=== PATIENT | male | born 1980 | race Native Hawaiian/Other Pacific Islander ===

== ENCOUNTER 2018-07-25 23:42 | Emergency (ER) | payer OTHER, MEDICAID ==
[~2018-07-25] VITALS: Ht 167.6 cm; Wt 80.7 kg
[~2018-07-25 23:42] MED LIST: BACTRIM DS TAB1 EACH PO; NOHOMEMEDICATIONS; NORCO 5-325 TA1 EACH PO
[2018-07-26 00:37] LABS: ABSOLUTE EOSINOPHILS 0.2 thou/uL (0.0-0.7); ABSOLUTE LYMPHOCYTES 2.9 thou/uL (0.8-5.3); ABSOLUTE MONOCYTES 0.6 thou/uL (0.0-1.2); BASOPHILS 0.3 %; EOSINOPHILS 2.5 %; HEMATOCRIT 41.4 % (42.0-52.0); HEMOGLOBIN 13.9 gm/dL (14.0-18.0); LYMPHOCYTES 43.6 %; MCH 29.9 pg (26.0-34.0); MCHC 33.5 g/dL (28.0-37.0); MONOCYTES 9.1 %; NUCLEATED RBCS 0 /100WBC; PLATELET COUNT* 296 thou/uL (150-400); POLYS 44.5 %; RBC 4.66 mil/uL (4.50-6.00); RDW-CV 13.1 % (10.5-14.5); WBC 6.7 thou/uL (4.0-11.0)
[2018-07-26 00:39] LABS: ANION GAP 8 mmol/L (7-16); BUN 17 mg/dL (7-18); CALCIUM 8.8 mg/dL (8.5-10.1); CHLORIDE 105 mmol/L (98-107); CO2 30 mmol/L (21-32); CREATININE 1.2 mg/dL (0.6-1.3); GLUCOSE 104 mg/dL (70-99); POTASSIUM 3.8 mmol/L (3.5-5.1); SODIUM 143 mmol/L (136-145)
[2018-07-26 00:49] LABS: ALBUMIN 3.7 g/dL (3.4-5.0); ALKALINE PHOSPHATASE 66 U/L (46-116); LIPASE 100 U/L (73-393); NT-PRO BRAIN NAT PEPTIDE 5 pg/mL (<300); SGOT 31 U/L (15-37); SGPT 53 U/L (30-65); TOTAL BILIRUBIN 0.2 mg/dL (<0.1-1.0); TOTAL PROTEIN 7.6 g/dL (6.4-8.2); TROPONIN-I LEVEL <0.06 ng/mL (<0.06)
[2018-07-26 01:10] VITALS: BP 127/80
--- NOTE | 2018-07-26 15:36 | EKG ---
[place] [address] ELECTROCARDIOGRAM REPORT Name: NELLY MIDDLETON Room: [facility]#: [id number] Admission: 07/25/18 Attend Phys: Discharge: 07/26/18 Date of : 78 Report #: [id number] THIS REPORT FOR: //name// [facility] ED Test Date: 2018-07-25 Test Time: 23:47:54 Pat Name: NELLY MIDDLETON Department: Room: Gender: M [employer]: : 1980 Requested By: Alex Camarena Order Number: [id number] MD: Tyler Palmer Measurements Intervals [place] Rate: 93 P: 16 MT: 133 QRS: 63 QRSD: 100 T: 53 QT: 342 QTc: 426 Interpretive Statements Sinus rhythm ST elev, probable normal early repol pattern No previous ECG available for comparison Electronically Signed On 07-26-2018 15:36:12 CDT by Tyler Palmer [email or web address] <ELECTRONICALLY SIGNED> By: Tyler Palmer MD, [facility] 07/26/18 [id number] Tyler Palmer MD, FACC /EPI
== END 2018-07-26 01:10 | disposition home or self-care (01) ==
LOC: M.ERS 23:42
PROVIDERS: Emergency Medicine
DX: R07.89 Other chest pain (principal); F17.210 Nicotine dependence, cigarettes, uncomplicated

== ENCOUNTER 2020-10-28 21:23 | Emergency (ER) | payer OTHER ==
[~2020-10-28] VITALS: Ht 170.2 cm; Wt 86.2 kg
[2020-10-28] MEDS ORDERED: CEPHALEXIN500 MG PO (21:44)
[2020-10-28] MEDS ORDERED: CENTANY30 GM TOP (21:44)
[2020-10-28] MEDS ORDERED: BACTRIM DS TAB1 EACH PO (21:44)
[2020-10-28] MEDS ORDERED: NORCO5 PO (21:55)
[2020-10-28 22:10] VITALS: BP 141/70
== END 2020-10-28 22:12 | disposition home or self-care (01) ==
LOC: M.ERS 21:23
DX: T24.602A Corrosion of second degree of unspecified site of left lower limb, except ankle and foot, initial encounter (principal); T24.601A Corrosion of second degree of unspecified site of right lower limb, except ankle and foot, initial encounter; T32.0 Corrosions involving less than 10% of body surface; F17.210 Nicotine dependence, cigarettes, uncomplicated; X19.XXXA Contact with other heat and hot substances, initial encounter; Y93.89 Activity, other specified; Y92.89 Other specified places as the place of occurrence of the external cause; Y99.8 Other external cause status